=== PATIENT | male | born 1980 | race Caucasian/White ===

== ENCOUNTER 2017-06-27 08:21 | Emergency (ER) | payer OTHER ==
--- NOTE | 2017-06-27 08:36 | ED Physician Documentation ---
General Adult - HISTORIAN Historian: patient - HPI Stated Complaint: foot pain Chief Complaint: General Adult Onset: hours Timing: still present Severity: moderate Further Comments: yes (Pt is a 36 yo male who jumped off a garage roof last night and now has pain in both heels. No other injuries or complaints.) - ROS CONST: no problems EYES/ENT: none CVS/RESP: none GI/: none MS/SKIN/LYMPH: other (b/l heel pain) - PAST HX Past History: none Allergies/Adverse Reactions: Allergies Allergy/AdvReac Type Severity Reaction Status Date / Time No Known Allergies Allergy Verified 06/27/17 08:31 Home Medications: Ambulatory Orders Medication Instructions Recorded NK [NK] 07/31/14 - SOCIAL HX Smoking History: cigarettes - FAMILY HX Family History: No - VITAL SIGNS Vital Signs: Vital Signs Temp Pulse Resp BP Pulse Ox 104/66 10/16/16 19:55 - REVIEWED ASSESSMENTS Nursing Assessment Reviewed: Yes Vitals Reviewed: Yes Progress - Progress Progress: X-ray R foot: Right foot - linea sclerosis is noted along the posterior aspect of the calcaneus, more prominent on the calcaneal radiographs concerning for fracture. No other fractures identified in the right foot. X-ray L foot: Left foot- no evidence of acute fracture or dislocation of the left foot. Plantar calcaneal enthesophyte is present. X-ray R calcaneous: Right - Slight cortical irregularity and linear area of sclerosis is noted along the right calcaneum concerning for fracture. Recommend follow up study. X-ray L calcaneous: Left : No obvious evidence of acute fracture or dislocation of the left calcaneum. Plantar calcaneal enthesophyte is present. CT R calcaneous: Findings: Transverse sections are obtained through the right hindfoot without contrast from which multiplanar reformatted images are generated. A nondisplaced, minimally comminuted fracture is observed through the posterior medial calcaneus extending to the plantar surface. The mid to anterior calcaneus is intact. The subtalar joints are intact. The distal fibula , distal tibia, talus, and navicular, and cuboid are intact. Impression: Nondisplaced fracture through the posterior calcaneus. Pt info: [facility] will call you on Wednesday to make an appointment to be seen in about 1 week. (The clinic number is tel. . Case was discussed with Dr. Holder for you to see Israel Grayson.) Crutches Rx [place] (). Take one or two tablets by mouth every 4 to 6 hrs as needed for moderate to severe pain. General Adult Physical Exam - PHYSICAL EXAM GENERAL APPEARANCE: mild distress EENT: eye inspection normal NECK: normal inspection, supple RESPIRATORY: no resp distress, chest non-tender, breath sounds normal CVS: reg rate & rhythm, heart sounds normal BACK: normal inspection SKIN: warm/dry, normal color EXTREMITIES: tenderness (heels b/l, minimal swelling R > L) NEURO: oriented X3, motor nml, sensation nml Discharge Clincal Impression: Right calcaneal fracture Qualifiers: Encounter type: initial encounter Calcaneus location: unspecified portion of calcaneus Fracture type: closed Fracture alignment: nondisplaced Qualified Code( s): S92.001A - Unspecified fracture of right calcaneus, initial encounter for closed fracture Referrals: Primary Doctor,No [Primary Care Provider] - Home Medications: Ambulatory Orders NK [NK] 07/31/14 Condition: Good Disposition: 01 HOME, SELF-CARE Decision to Admit: NO Decision Time: 11:04
--- NOTE | 2017-06-27 09:30 | Diagnostic Imaging Report ---
[facility] [address] [facility].[address] [id number] Report Submission Date: Jun 27, 2017 9:23:37 AM CDT Patient Study Name: MELISSA VO Date: Jun 27, 2017 8:41:34 AM CDT Modality Type: CR Gender: M Description: LOWER EXTREMITY : 78 Institution: [facility] Physician: MORALES OBRIEN - ER 3 views each of the bilateral feet History: BILATERAL FEET. PT STATES JUMPED OFF ROOF LAST NIGHT LANDED ON HEELS. LEFT MORE SWOLLEN THAN RIGHT No comparison studies Right foot - linea sclerosis is noted along the posterior aspect of the calcaneus, more prominent on the calcaneal radiographs concerning for fracture. No other fractures identified in the right foot Left foot- no evidence of acute fracture or dislocation of the left foot. Plantar calcaneal enthesophyte is present Electronically signed on Jun 27, 2017 9:23:37 AM CDT by: Linda FULTON
--- NOTE | 2017-06-27 09:31 | Diagnostic Imaging Report ---
[facility] [address] [facility].[address] [id number] Report Submission Date: Jun 27, 2017 9:26:11 AM CDT Patient Study Name: MELISSA VO Date: Jun 27, 2017 8:45:27 AM CDT Modality Type: CR Gender: M Description: LOWER EXTREMITY : 78 Institution: [facility] Physician: MORALES OBRIEN - CAROLEE 2 views each of the bilateral calcanei History: BILATERAL CALCANEUS. PT STATES HE JUMPED OFF ROOF LAST NIGHT AND LANDED ON HIS HEELS. LEFT MORE SWOLLEN THAN RIGHT No similar to prior comparison studies Right - Slight cortical irregularity and linear area of sclerosis is noted along the right calcaneum concerning for fracture. Recommend follow up study. Left : No obvious evidence of acute fracture or dislocation of the left calcaneum. Plantar calcaneal enthesophyte is present Electronically signed on Jun 27, 2017 9:26:11 AM CDT by: Linda FULTON
[2017-06-27 11:32] VITALS: BP 149/89
--- NOTE | 2017-06-27 13:06 | Diagnostic Imaging Report ---
[facility] [address] [facility] [address] [place] [address]. [id number] Report Submission Date: Jun 27, 2017 11:00:47 AM CDT Patient Study Name: MELISSA VO Date: Jun 27, 2017 9:50:12 AM CDT Modality Type: CT\SR Gender: M Description: CT LEG W/O CONTRAST : 78 Institution: [facility] Physician: MORALES OBRIEN Computed tomography of the right calcaneus History: Calcaneus pain after jumped off roof Findings: Transverse sections are obtained through the right hindfoot without contrast from which multiplanar reformatted images are generated. A nondisplaced , minimally comminuted fracture is observed through the posterior medial calcaneus extending to the plantar surface. The mid to anterior calcaneus is intact. The subtalar joints are intact. The distal fibula, distal tibia, talus, and navicular, and cuboid are intact. Impression: Nondisplaced fracture through the posterior calcaneus Electronically signed on Jun 27, 2017 11:00:47 AM CDT by: Cj Grant The following text is a previous version of the current report for this study. Computed tomography of the right calcaneus History: Calcaneus pain after jumped off roof Findings: Transverse sections are obtained through the left hindfoot without contrast from which multiplanar reformatted images were generated. A nondisplaced, minimally comminuted fracture is observed through the posterior medial calcaneus extending to the plantar surface. The mid to anterior calcaneus is intact. The subtalar joints are intact. The distal fibula, distal tibia, talus, and navicular, and cuboid are intact. Impression: Nondisplaced fracture through the posterior calcaneus. Prior version electronically signed by Cj Grant on June 27, 2017 10:30: 42 AM CDT [facility]
== END 2017-06-27 11:25 | disposition home or self-care (01) ==
LOC: ED 08:21
DX: S92.001A Unspecified fracture of right calcaneus, initial encounter for closed fracture (principal); X58.XXXA Exposure to other specified factors, initial encounter; Y93.9 Activity, unspecified; Y99.9 Unspecified external cause status
CPT/HCPCS: 73650; 73700; 99283

== ENCOUNTER 2018-03-08 08:33 | Emergency (ER) | payer OTHER ==
[2018-03-08 09:05] VITALS: BP 157/89
[2018-03-08] MEDS ORDERED: Lidocaine 1% 5ml(IM or SUTURE)(PAIN CLINIC) IJ ONE (09:06)
--- NOTE | 2018-03-08 09:06 | ED Physician Documentation ---
General Adult - HISTORIAN Historian: patient - HPI Chief Complaint: Lower Extremity Problem (wound/ bug bite) Additional Information: Patient has developed some redness and tenderness to the medial right posterior knee area. No drainage. Not sure if he got bit by something. No puncture wound noted. Patient has a cystic lesion that has been present for some time to the R posterior knee. New erythematous and tender lesion at the edge of the old cystic lesion. Onset: days ago (4 days ago) Timing: still present, worse Context: no know precipitating cause Quality: achy pain Further Comments: no - ROS CONST: no problems. denies: fever, chills - PAST HX Past History: none Other History: none Surgeries/Procedures: none Allergies/Adverse Reactions: Allergies Allergy/AdvReac Type Severity Reaction Status Date / Time No Known Allergies Allergy Verified 03/08/18 09:05 Home Medications: Ambulatory Orders Medication Instructions Recorded Cephalexin [Keflex] 500 mg PO TID #21 capsule 03/08/18 - SOCIAL HX Smoking History: less than 1 pack/day Alcohol Use: occasionally Drug Use: none - FAMILY HX Family History: No - VITAL SIGNS Vital Signs: Vital Signs Temp Pulse Resp BP Pulse Ox 149/89 06/27/17 11:31 - REVIEWED ASSESSMENTS Nursing Assessment Reviewed: Yes Vitals Reviewed: Yes Procedures Site: right medial posterior knee area Blade Size: 11 I & D Procedure: sterile drapes applied, sterile dressing applied, Chlorhexidine Progress: about 2.5cc of brown purulent material expressed. 1/4 packing placed General Adult Physical Exam - PHYSICAL EXAM GENERAL APPEARANCE: no distress RESPIRATORY: no resp distress, chest non-tender, breath sounds normal. No: wheezes, rales, rhonchi CVS: reg rate & rhythm, heart sounds normal, equal pulses, no murmur, no gallop SKIN: warm/dry, other (.) NEURO: oriented X3, mood/affect nml, cognition normal Discharge Clincal Impression: Abscess of leg, right Prescriptions: Cephalexin [Keflex] 500 mg PO TID #21 capsule Referrals: Primary Doctor,No [Primary Care Provider] - 2 Days Additional Instructions: Take cephalexin three times a day. Keep wound clean and dry. may take a shower. . Try to keep packing in place until seen on Wednesday. [facility] ([facility]) at 9AM [place]. IF you have any problems to call, be seen in C or return to the ED. Condition: Stable Disposition: 01 HOME, SELF-CARE Decision to Admit: NO Date of Decison to Admit: 03/08/18 Decision Time: 09:31
== END 2018-03-08 09:37 | disposition home or self-care (01) ==
LOC: ED 08:33
DX: L02.415 Cutaneous abscess of right lower limb (principal)
CPT/HCPCS: 10060; 87070; 96372